=== PATIENT | male | born 1960 | race African-American/Black ===

== ENCOUNTER 2019-04-05 17:19 | Inpatient (IN) | payer SELFPAY ==
[~2019-04-05] VITALS: Ht 182.9 cm; Wt 118.4 kg
[2019-04-05] MEDS ORDERED: NALOXONE 2 MG/2 ML DISP.SYRIN. IV ONE ×2 (17:25→17:45)
[2019-04-05] MEDS ORDERED: IV NORMAL SALINE 1,000ML 1,000 ML IV SCH (17:29)
--- NOTE | 2019-04-05 17:37 | PHYS DOC ---
Past History Past Medical History: Hypertension (ALISA SALDIVAR MD) Adult General HPI HPI Patient is a 58-year-old male who presents to the emergency department for evaluation. EMS reports that the patient went to the supermarket with his and felt okay, but began feeling dizzy and lightheaded when they were leaving the store, and passed out in the car on the way home, and EMS was called. He does admit to some discomfort in his feet bilaterally, but besides that denies any pain. Denies any headache, chest pain, shortness of breath, abdominal pain, and has not had any nausea, vomiting, diarrhea, black or bloody stools. EMS activated a "code stroke" from the field, although other than some mildly slurred speech, likely suspected to be due to weakness, the patient is not having any focal neurological deficits. He is coherent and oriented, moves all extremities and follows commands normally. He does appear generally weak diffusely. There are no other alleviating or exacerbating factors to his symptoms. Initial blood pressure is 87 systolic, improved to about 105, with laying the patient supine initiating IV fluids. (ALISA SALDIVAR MD) Review of Systems Review of Systems Constitutional: Denies fever or chills [] Eyes: Denies change in visual acuity, redness, or eye pain [] HENT: Denies nasal congestion or sore throat [] Respiratory: Denies cough or shortness of breath [] Cardiovascular: The patient denies any shortness of breath, chest pain, palpitations, or orthopnea[] GI: Denies abdominal pain, nausea, vomiting, bloody stools or diarrhea [] : Denies dysuria or hematuria [] Musculoskeletal: Denies back pain or joint pain [] Integument: Denies rash or skin lesions [] Neurologic: Denies headache, focal weakness or sensory changes . Does report generalized weakness.[] Endocrine: Denies polyuria or polydipsia [] All other systems were reviewed and found to be within normal limits, except as documented in this note. (ALISA SALDIVAR MD) Current Medications Current Medications Current Medications Medications (Trade) Dose Ordered Sig/Hayde Start Time Stop Time Status Last Admin Dose Admin Naloxone HCl (Narcan) 1 mg 1X ONCE 04/05/19 17:45 04/05/19 17:46 UNV Sodium Chloride 1,000 ml @ 1,000 mls/hr 1X ONCE 04/05/19 17:45 04/05/19 18:44 UNV (ALISA SALDIVAR MD) Physical Exam Physical Exam PHYSICAL EXAM: CONSTITUTIONAL: Well developed, well nourished HEAD: normocephalic, atraumatic EENT: PERRL, EOMI. Conjunctivae normal color, sclerae non-icteric; moist mucous membranes. There is no nystagmus. NECK: Supple, non-tender; no meningismus. LUNGS: Lungs CTA, breathing even and unlabored. Normal air movement. HEART: Regular rate and rhythm, no murmur CHEST: No deformity; non-tender ABDOMEN: The abdomen is soft, and non-tender, no masses or bruits. EXTREM: Normal ROM; no deformity, no calf tenderness. Normal pulses palpable in all extremities. There is 2+ pitting pedal edema bilaterally. There are subacute to chronic appearing superficial sores on the lower extremities bilaterally without any active open wounds. There are scabs present on the wounds. SKIN: No rash; no diaphoresis NEURO: Patient is somnolent but awake, oriented to person, place, and time. Moves all extremities symmetrically. Cranial is 2-12 are intact. Speech is mildly slurred, likely reflective of generalized weakness, there is no dysarthria or aphasia, however. The patient is able to name all of the stroke stimulus objects. NIH stroke scale score is a 1, for questionable speech deficit. BACK: No CVA TTP. (ALISA SALDIVAR MD) EKG EKG Normal sinus rhythm with a normal rate, normal axis, normal intervals, there are no acute ischemic ST/T changes.[] (ALISA SALDIVAR MD) Radiology/Procedures Radiology/Procedures [] (ALISA SALDIVAR MD) Course & Med Decision Making Course & Med Decision Making Pertinent Labs and Imaging studies reviewed. (See chart for details) []CRITICAL CARE TIME: [45] Minutes, excluding any procedures and care of other patients. 6:00 PM: Patient care be turned over to Dr. Ariza at shift change, pending diagnostic results, and final disposition. Report given. (ALISA SALDIVAR MD) Course & Med Decision Making The patient's troponin is negative. His labs are remarkable for an elevated creatinine and elevated lactic acid. We have started him on 2 L normal saline. His blood pressure has improved. The patient does tell me he is on 3 different blood pressure medicines. This could be part of why his blood pressures low today. His blood pressure could explain his symptoms. I spoke to the hospitalist, Dr. Navarro and he has agreed to admit the patient. (CARLOS ARIZA DO) Dragon Disclaimer Dragon Disclaimer This electronic medical record was generated, in whole or in part, using a voice recognition dictation system. (ALISA SALDIVAR MD) Departure Departure: Impression: Primary Impression: Elevated lactic acid level Additional Impressions: Elevated serum creatinine Hypotension Slurred speech Disposition: ADMITTED INPATIENT Admitting Physician: Reji Navarro (CARLOS ARIZA DO) Condition: STABLE Referrals: KIMBERLY LOBO DO (PCP) Problem Qualifiers Additional Impressions: Hypotension Hypotension type: unspecified hypotension type Qualified Codes: I95.9 - Hypotension, unspecified ALISA SALDIVAR MD Apr 05, 2019 17:37 CARLOS ARIZA DO Apr 05, 2019 19:04
[2019-04-05] MEDS ORDERED: IV NORMAL SALINE 1,000ML 1,000 ML IV ONE (17:45)
[2019-04-05 17:50] LABS: BASO # 0.1 x10^3/uL (0.0-0.2); BASO % 1 % (0-3); EOS # 0.2 x10^3/uL (0.0-0.7); EOS % 2 % (0-3); HEMATOCRIT 43.9 % (39.0-53.0); HEMOGLOBIN 14.7 g/dL (13.0-17.5); LYMPH # 1.8 x10^3/uL (1.0-4.8); LYMPH % 22 % (24-48); MEAN CORPUSCULAR HEMOGLOBIN 31 pg (25-35); MEAN CORPUSCULAR HGB CONC 34 g/dL (31-37); MEAN CORPUSCULAR VOLUME 92 fL (79-100); MONO # 0.7 x10^3/uL (0.0-1.1); MONO % 9 % (0-9); NEUT # 5.5 x10^3uL (1.8-7.7); NEUT % 67 % (31-73); PLATELET COUNT 285 x10^3/uL (140-400); RED BLOOD COUNT 4.76 x10^6/uL (4.30-5.70); WHITE BLOOD COUNT 8.2 x10^3/uL (4.0-11.0)
--- NOTE | 2019-04-05 17:55 | RAD ---
Exam: CT head INDICATION: Stroke TECHNIQUE: Sequential axial images through the head were obtained without the administration of IV contrast. Comparisons: None FINDINGS: No focal parenchymal lesion or hemorrhage is identified. There is no midline shift or sulcal effacement. Patchy hypodensities noted within the periventricular white matter The ventricular system is within normal limits without compression hydrocephalus. The basal cisterns are well maintained. The visualized portions of the paranasal sinuses and mastoid air cells are well-pneumatized. No acute fractures. IMPRESSION: Patchy hypodensities in the periventricular white matter which are age in determinant. No acute hemorrhage. Exposure: One or more of the following in the visualized dose reduction techniques were utilized for this examination: 1. Automated exposure control 2. Adjustment of the MA and/or KV according to patient size Use of iterative of reconstructive technique FOR INTERNAL CODING PURPOSES Critical result: Findings discussed with ALISA SALDIVAR at 04/05/2019 5:51 PM. RESULT CODE: (C) Electronically signed by: Theresa Rao MD (04/05/2019 5:52 PM) [facility]
[2019-04-05 18:12] LABS: ALBUMIN 3.4 g/dL (3.4-5.0); ALBUMIN/GLOBULIN RATIO 0.8 (1.0-1.7); GFR 41.6; MAGNESIUM 1.9 mg/dL (1.8-2.4); POTASSIUM 3.3 mmol/L (3.5-5.1); TOTAL BILIRUBIN 0.4 mg/dL (0.2-1.0); TOTAL PROTEIN 7.7 g/dL (6.4-8.2)
[2019-04-05 18:14] LABS: CLARITY,URINE CLEAR; COLOR,URINE YELLOW
[2019-04-05 18:15] LABS: BACTERIA,URINE FEW /HPF (0-FEW); BILIRUBIN,URINE NEG (NEG); GLUCOSE,URINE NEG (NEG); NITRITE,URINE NEG (NEG); RBC,URINE 0 /HPF (0-2); UROBILINOGEN,URINE 0.2 mg/dL (0.2 mg/dL); WBC,URINE RARE /HPF (0-4)
[2019-04-05 18:16] LABS: HYALINE CASTS, URINE OCC /HPF
[2019-04-05 18:18] LABS: BARBITURATES NEG (NEG); BENZODIAZEPINES NEG (NEG); CANNABINOIDS NEG (NEG); COCAINE NEG (NEG); METHADONE NEG (NEG); OPIATES NEG (NEG); PHENCYCLIDINE NEG (NEG)
[2019-04-05 18:21] LABS: AMPHETAMINE/METHAMPHETAMINE NEG (NEG)
--- NOTE | 2019-04-05 18:25 | EKG ---
[address] [address] Test Date: 2019-04-05 Test Time: 17:26:33 Pat Name: AGA DENISE Department: Room: Gender: M Signalman: : 1960 Requested By: ALISA SALDIVAR Order Number: [id number] Reading MD: Matheus Cuadra MD Measurements Intervals [place] Rate: 83 P: 50 CO: 174 QRS: 29 QRSD: 80 T: 17 QT: 390 QTc: 459 Interpretive Statements SINUS RHYTHM Electronically Signed On 04-08-2019 11:19:23 CDT by Matheus Cuadra MD
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
[2019-04-05 20:00] VITALS: BP 122/85
[2019-04-05] MEDS: POTASSIUM CL 20MEQ IN 0.9%NACL 1,000 ML IV SCH (22:07)
[2019-04-05] MEDS ORDERED: IBUPROFEN 800 MG TABLET. PO PRN (22:30)
[2019-04-05] MEDS ORDERED: ACETAMINOPHEN 500 MG TABLET PO PRN (23:00)
[2019-04-05] MEDS ORDERED: PANT40TA3 PO (23:08)
[2019-04-05] MEDS ORDERED: POTA10TA10 PO (23:08)
[2019-04-05] MEDS ORDERED: HYDR12.58 PO (23:09)
[2019-04-05] MEDS ORDERED: AMLO10TA8 PO (23:10)
[2019-04-05] MEDS ORDERED: METF500T16 PO (23:10)
[2019-04-05] MEDS ORDERED: LOSA50TA86 PO (23:10)
[2019-04-06 06:29] VITALS: BP 126/86
[2019-04-06 08:05] LABS: BASO % 0 % (0-3); EOS # 0.1 x10^3/uL (0.0-0.7); EOS % 2 % (0-3); HEMATOCRIT 43.3 % (39.0-53.0); HEMOGLOBIN 14.5 g/dL (13.0-17.5); LYMPH # 1.9 x10^3/uL (1.0-4.8); LYMPH % 27 % (24-48); MEAN CORPUSCULAR HEMOGLOBIN 31 pg (25-35); MEAN CORPUSCULAR HGB CONC 34 g/dL (31-37); MEAN CORPUSCULAR VOLUME 92 fL (79-100); MONO # 0.6 x10^3/uL (0.0-1.1); MONO % 8 % (0-9); NEUT # 4.3 x10^3uL (1.8-7.7); NEUT % 62 % (31-73); PLATELET COUNT 251 x10^3/uL (140-400); RED CELL DISTRIBUTION WIDTH 14.9 % (11.5-14.5); WHITE BLOOD COUNT 6.9 x10^3/uL (4.0-11.0)
[2019-04-06 08:12] LABS: CALCIUM 8.6 mg/dL (8.5-10.1); CREATININE 1.4 mg/dL (0.7-1.3); GFR 62.8; POTASSIUM 3.3 mmol/L (3.5-5.1)
[2019-04-06] MEDS: metFORMIN 500 MG TABLET PO SCH ×2 (09:52→17:00)
[2019-04-06] MEDS: amLODIPine BESYLATE 10 MG TABLET PO SCH (09:52)
[2019-04-06] MEDS: PANTOPRAZOLE 40 MG TABLET. PO SCH (09:52)
[2019-04-06] MEDS: LOSARTAN 50 MG TABLET. PO SCH (09:53)
[2019-04-06] MEDS: POTASSIUM CHLORIDE 20 MEQ TABLET.ER. PO SCH (09:53)
[2019-04-06 11:20] VITALS: BP 153/78
[2019-04-06] MEDS ORDERED: ALBU2.5V8 INH (11:53)
[2019-04-06] MEDS ORDERED: ALBUTEROL SULFATE 2.5 MG/3 ML NEBU. INH PRN (12:00)
[2019-04-06] MEDS: POTASSIUM CL 20MEQ IN 0.9%NACL 1,000 ML IV SCH (12:11)
[2019-04-06] MEDS: HYDROcodone/APAP 5/325MG 1 TAB TABLET PO PRN (12:11)
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
[2019-04-06 15:07] VITALS: BP 163/90
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
--- NOTE | 2019-04-06 19:09 | RAD ---
Exam: Right lower extremity venous duplex study INDICATION: Leg swelling TECHNIQUE: Using a combination of real-time ultrasound imaging and color-flow and pulse Doppler imaging techniques along with graded compression and augmentation, duplex evaluation of the deep venous systems of rightlower extremity was performed. Multiple images were obtained. Findings: There is no sonographic evidence for deep venous thrombosis involving the visualized deep venous structures of the right lower extremity. IMPRESSION: No acute DVT in the right lower extremity Electronically signed by: Theresa Rao MD (04/06/2019 7:06 PM) [facility]
[2019-04-06 20:25] VITALS: BP 169/94
[2019-04-06] MEDS: POTASSIUM CL 40MEQ IN 0.9%NACL 1,000 ML IV SCH (20:30)
--- NOTE | 2019-04-07 00:24 | PN ---
DATE: SUBJECTIVE: The patient was admitted yesterday with slurring speech and initially was brought as a code stroke from the field; however, by the time he arrived to the hospital, he has only slurring speech without any focal weakness. The patient is not having any focal neurological deficit. He is coherent, oriented, moves all extremities. He was found to have a bit dehydrated, hypotensive, has lactic acidosis and hypokalemia, so we started him on IV fluid and he did actually well. His blood pressure has improved and his serum potassium has improved. His creatinine came down from 2 to 1.4 and BUN down to 16. On questioning this afternoon, he was still complaining of pain in his left shoulder and swelling of his right leg, which is mildly swollen. PHYSICAL EXAMINATION: GENERAL: When I examined him, there is no pallor, jaundice, cyanosis or thyromegaly. No jugular venous distention. Mild right-sided swelling compared to the left. VITAL SIGNS: Heart rate was 78, blood pressure was 163/90, temperature was 97.7, respiratory rate was 20 and oxygen saturation was 96%. The rest of clinical exam is stable. His intake was 3118, output was recorded. LABORATORY DATA: Her lab work this morning showed a serum sodium 142, potassium 3.3, chloride 102, bicarbonate 32, anion gap of 8, BUN 16, creatinine 1.4, estimated GFR was 62 mL per minute. His glucose was 108, calcium was 8.6. White cell count was 6900, hemoglobin 14.5, hematocrit 43, MCV 92 and platelet count 151,000. ASSESSMENT: Acute kidney injury, improving. His creatinine came down from 2 to 1.4, hypokalemia, continues to be somewhat low and in fact lactic acid went up to 2.6. PLAN: My plan is to continue holding his hydrochlorothiazide. I will hold his metformin. Continue with IV fluid and repeat his lab work tomorrow. FRANTZ CHAVARRIA MD DR: JULIANNA/rose JOB#: [id number] / [id number]
[2019-04-07 06:12] VITALS: BP 149/102
[2019-04-07] MEDS: POTASSIUM CL 40MEQ IN 0.9%NACL 1,000 ML IV SCH ×2 (06:13→13:27)
[2019-04-07 06:27] LABS: ALBUMIN 3.1 g/dL (3.4-5.0); ALBUMIN/GLOBULIN RATIO 0.7 (1.0-1.7); CALCIUM 8.7 mg/dL (8.5-10.1); CREATININE 1.1 mg/dL (0.7-1.3); GFR 82.9; POTASSIUM 3.9 mmol/L (3.5-5.1); TOTAL BILIRUBIN 0.3 mg/dL (0.2-1.0); TOTAL PROTEIN 7.4 g/dL (6.4-8.2)
[2019-04-07] MEDS: POTASSIUM CHLORIDE 20 MEQ TABLET.ER. PO SCH (08:25)
[2019-04-07] MEDS: PANTOPRAZOLE 40 MG TABLET. PO SCH (08:26)
[2019-04-07] MEDS: amLODIPine BESYLATE 10 MG TABLET PO SCH (08:26)
[2019-04-07] MEDS: LOSARTAN 50 MG TABLET. PO SCH (08:26)
[2019-04-07] MEDS: HYDROcodone/APAP 5/325MG 1 TAB TABLET PO PRN (11:05)
[2019-04-07 11:13] VITALS: BP 151/95
--- NOTE | 2019-04-07 16:02 | DS ---
DATE OF DISCHARGE: 04/07/2019 HOSPITAL COURSE: The patient is a 58-year-old -[place] male patient who was admitted initially as a code stroke as he was feeling dizzy, lightheaded, and slurring his speech. However, by the time he arrived to the Emergency Room, the patient did not show any focal neurological deficit. He was coherent and oriented, moves all his extremities and follows commands normally. He does appears generally weak diffusely. He was found to be hypertensive with systolic pressure of 87. Lab work also showed that he has lactic acidosis, probably both type A and B as he was hypotensive and he was also on metformin. He was admitted and treated with IV fluid. We held his metformin and hydrochlorothiazide and his blood pressure has improved. In fact, his blood pressure today was 151/95. His serum potassium improved from 3.3 to 3.9. His creatinine came down from 2 to 1.1 and his BUN came down from 15 to 11 and the patient was discharged home to discontinue hydrochlorothiazide. PHYSICAL EXAMINATION: GENERAL: When I saw him this afternoon, he looked well and was clearly in no apparent respiratory distress. No pallor, jaundice, cyanosis. No thyromegaly. No jugular venous distention. No lower limb edema. VITAL SIGNS: His heart rate was 80, blood pressure 151/95, temperature was 98.3, respiratory rate was 18 and oxygen saturation was 98%. HEAD, EYES, EARS, NOSE AND THROAT: Showed normocephalic, atraumatic. NECK: Supple. HEART: Showed normal first and second heart sounds. No gallop, rub or murmur. CHEST: Clear to auscultation. No crepitation or rhonchi. ABDOMEN: Distended, soft, nontender. NEUROLOGIC: He is awake, alert, responding appropriately. All cranial nerves intact. He moves extremities without difficulty, ambulates without assistance or assistive devices. His intake over the last 24 hours was 3200, output was recorded. LABORATORY DATA: This morning showed a serum sodium 142, potassium 3.9, chloride 104, bicarbonate 29, anion gap of 9, BUN 11, creatinine 1.1, estimated GFR was 83 mL per minute, his glucose 106, calcium was 8.7. Total bilirubin, AST, ALT, alkaline phosphatase were normal. Total protein was 7.4, albumin 3.1. His white cell count was 6900, hemoglobin 14.5, hematocrit 43, MCV 92, and platelet count 251,000. His prothrombin time, INR and aPTT were normal. Urinalysis was essentially unremarkable and his toxic screen was negative. His CT scan of the head, chest x-ray, shoulder x-ray and venous Doppler ultrasound of right lower extremity were all negative. DISCHARGE MEDICATIONS: He was discharged home to continue on albuterol sulfate 2 puffs every 6 hours, amlodipine besylate 10 mg once a day, losartan potassium 50 mg once a day, metformin 500 mg twice a day, Protonix 40 mg once a day and potassium chloride 20 mEq once a day. I discontinued his hydrochlorothiazide. FINAL DISCHARGE DIAGNOSES: 1. Acute kidney injury, improving. His creatinine came down from 2 to 1.1. 2. Hypokalemia, potassium improved from 3.3 to 3.9. 3. Other medical problems include hypertension, type 2 diabetes mellitus, hyperlipidemia, morbid obesity, obstructive sleep apnea, on CPAP, osteoarthritis and benign prostatic hypertrophy. FRANTZ CHAVARRIA MD DR: JULIANNA/rose JOB#: [id number] / [id number]
== END 2019-04-07 15:42 | disposition home or self-care (01) | DRG 683 ==
LOC: ER 17:19 → 1 SOUTH 18:52
PROVIDERS: ADMIT Internal Medicine; ATTEND Internal Medicine
DX: N17.9 Acute kidney failure, unspecified (principal); E87.2 Acidosis; R47.81 Slurred speech; I95.9 Hypotension, unspecified; E11.69 Type 2 diabetes mellitus with other specified complication; E66.01 Morbid (severe) obesity due to excess calories; E78.5 Hyperlipidemia, unspecified; E86.0 Dehydration; E87.6 Hypokalemia; F17.210 Nicotine dependence, cigarettes, uncomplicated; G47.33 Obstructive sleep apnea (adult) (pediatric); I10 Essential (primary) hypertension; M19.90 Unspecified osteoarthritis, unspecified site; N40.0 Benign prostatic hyperplasia without lower urinary tract symptoms; T38.3X5A Adverse effect of insulin and oral hypoglycemic [antidiabetic] drugs, initial encounter
CPT/HCPCS: 36415; 70450; 71045; 73030; 80048; 80053; 80307; 81001; 82947; 83605; 83690; 83735; 83880; 84484; 85025; 85610; 85730; 87040; 87205; 93005; 93971; 96374; G0480; J2310; J7613; 99285-25; J7030